=== PATIENT | male | born 1965 | race Caucasian/White ===

== ENCOUNTER 2017-04-27 15:47 | Emergency (ER) | payer BC ==
[~2017-04-27] VITALS: Ht 167.6 cm; Wt 68.0 kg
[~2017-04-27 15:47] MED LIST: ATORVASTATIN CA40 MG PO; BACTRIM DS TAB1 EACH PO; KEFLEX500 MG PO; NORVASC10 MG PO; VENTOLIN IH; ZOMIG5 M1 NS
--- NOTE | 2017-04-27 16:00 | NUR ---
DR FLORENTINO AT THE BEDSIDE FOR EVAL AND EXAM.
[2017-04-27] MEDS ORDERED: HYDROMORPHONE 1 MG/1 ML DISP.SYRIN IV ONE ×3 (16:15→17:45)
[2017-04-27] MEDS ORDERED: IV NORMAL SALINE 1000 ML BAG IV ONE ×2 (16:15→17:45)
[2017-04-27] MEDS ORDERED: ONDANSETRON 4 MG/2 ML VIAL IV ONE (16:15)
[2017-04-27] MEDS ORDERED: ONDANSETRON 4 MG/2 ML VIAL ONE (16:21)
[2017-04-27] MEDS ORDERED: HYDROMORPHONE 1 MG/1 ML DISP.SYRIN ONE ×3 (16:21→18:02)
[2017-04-27] MEDS ORDERED: QVAR7.3 GM INH (17:44)
[2017-04-27] MEDS ORDERED: PERCOCET 10-321 EACH PO (17:44)
[2017-04-27] MEDS ORDERED: LEVOFLOXACIN 750 MG/D5W 150 ML PIGGYBACK IV ONE (17:45)
--- NOTE | 2017-04-27 18:01 | NUR ---
PT STATES STILL IN ALOT OF PAIN, 07/10. MD AWARE. URINE COLLECTED AND SENT TO LAB.
[2017-04-27] MEDS ORDERED: LEVOFLOXACIN 750MG/D5W 150 ML IV ONE (18:02)
--- NOTE | 2017-04-27 18:23 | NUR ---
[facility] CALLED FOR PT'S TX TO [facility] FOR CT, PER MD ORDER.
--- NOTE | 2017-04-27 18:25 | NUR ---
[facility] ETA IS 1 1/2 TO 2 HOURS, MD AND PT AWARE.
[2017-04-27] MEDS ORDERED: KETOROLAC TROMETHAMINE 30 MG INJ IVP ONE (18:45)
[2017-04-27] MEDS ORDERED: KETOROLAC TROMETHAMINE 30 MG INJ ONE (18:47)
[2017-04-27] MEDS ORDERED: TAMSULOSIN HCL 0.4 MG CAP.SR.24H PO ONE (19:15)
[2017-04-27] MEDS ORDERED: TAMSULOSIN HCL 0.4 MG CAP.SR.24H ONE (19:26)
--- NOTE | 2017-04-27 19:55 | NUR ---
Patient stated that he did not have pain from the suspected kidney stone any longer. Patient wishes to leave the hospital. [facility] Notified.
--- NOTE | 2017-04-27 20:05 | NUR ---
Patient discharged to home in stable conditon. Written and verbal after care instructions given. Patient verbalizes understanding of instructions.
== END 2017-04-27 20:06 | disposition home or self-care (01) ==
LOC: ER 15:47
DX: N23 Unspecified renal colic (principal); F11.23 Opioid dependence with withdrawal; I10 Essential (primary) hypertension; E78.00 Pure hypercholesterolemia, unspecified; J45.909 Unspecified asthma, uncomplicated; E78.5 Hyperlipidemia, unspecified
CPT/HCPCS: 36415; 74176; 76770; 76775; 80048; 80076; 81001; 83605 ×2; 83690; 84484; 85025; 87040 ×2; 96361; 96365; 96375; 96376; 99285; A4663; J1170 ×3; J1885; J1956; J2405; J7030 ×2